=== PATIENT | male | born 1955 | race Caucasian/White ===

== ENCOUNTER 2017-04-08 10:10 | Emergency (ER) | payer OTHER ==
--- NOTE | 2017-04-08 10:15 | PDOC ---
Attending Attestation - Resident Resident Name: Bebo Buck - ED Attending Attestation I have performed the following: I have examined & evaluated the patient, The case was reviewed & discussed with the resident, I agree w/resident's findings & plan, Exceptions are as noted - HPI HPI: 04/08/17 10:14 The patient is a 61-year-old male, who presents to the emergency department with several days of right wrist pain, after a mechanical fall with wrist trauma. He denies weakness or paresthesias in the fingers. He denies pain or injury elsewhere. - Physicial Exam PE: 04/08/17 10:14 Vitals noted He has tenderness at the distal wrist over the distal radius and minimal tenderness in the snuff box He has no tenderness in the carpal bones or bones of the fingers. He has no tenderness in the proximal forearm. 04/08/17 10:31 - Medical Decision Making 04/08/17 10:15 He is well-appearing and in no acute distress Will obtain plain x-rays 04/08/17 11:18 X-ray radiology reading noted: No evidence of fracture We have informed the patient that he needs to follow-up with orthopedics for further evaluation to definitively exclude the possibility of a scaphoid fracture that is occult, or any other occult injury. Clinical impression: Wrist contusion I discussed the physical exam findings, ancillary test results and final diagnoses with the patient. I answered all of the patient's questions. The patient was satisfied with the care received and felt comfortable with the discharge plan and treatment plan. The patient will call their primary care physician within 24 hours to arrange follow-up and will return to the Emergency Department with any new, persistent or worsening symptoms.
[2017-04-08 10:23] VITALS: BP 143/101; PULSE 82; TEMP 97.9; BMI 30.1
--- NOTE | 2017-04-08 10:40 | PDOC ---
History of Present Illness - General Chief Complaint: Injury Stated Complaint: RIGHT WRIST PAIN Time Seen by Provider: 04/08/17 10:14 History Source: Patient Exam Limitations: No Limitations - History of Present Illness Initial Comments: 61 y/o M w/PMH of HTN, DM, HLD, Hydrocephalus s/p shunt, presents to [facility] ER w / c/o R wrist pain. Pt had mechanical fall after tripping on curb in [place] on March 27, 2017 (returned back to [facility] yesterday night) and landed on back and R wrist. He has had 8/10 pain since and has pain along the medial distal forearm to thumb area. He c/o some swelling in the area which has not subsided or worsened and used diclofenac gel in the area after injuring the wrist. He c/o some tingling in fingers. Ice in the morning helps with pain and tylenol helps alleviate the pain. He denies N/V/F/C, CP, SOB, abd pain, light-headedness, dizziness, change in vision. Past History - Past Medical History Allergies/Adverse Reactions: Allergies Allergy/AdvReac Type Severity Reaction Status Date / Time gabapentin [From Neurontin] Allergy Unknown Verified 04/08/17 10:28 Home Medications: Ambulatory Orders Albuterol Sulfate [Proair Respiclick] 90 mcg IH ASDIR 09/29/16 Amlodipine Besylate [Norvasc -] 10 mg PO DAILY 09/29/16 Aspirin [ASA -] 81 mg PO DAILY 09/29/16 Duloxetine HCl [Cymbalta] 60 mg PO BID 09/29/16 Fexofenadine HCl [Yessica Allergy] 180 mg PO DAILY 09/29/16 Furosemide [Lasix -] 40 mg PO DAILY 09/29/16 Metformin HCl [Glucophage] 1,000 mg PO BID 09/29/16 Omeprazole 40 mg PO DAILY 09/29/16 Quinapril HCl [Accupril] 20 mg PO DAILY 09/29/16 Saxagliptin HCl [Onglyza] 2.5 mg PO DAILY 09/29/16 Spironolactone [Aldactone] 25 mg PO DAILY 09/29/16 Diabetes: Yes HTN: Yes - Surgical History Cholecystectomy: Yes - Psycho/Social/Smoking Cessation Hx Anxiety: No Suicidal Ideation: No Smoking History: Never smoked Hx Alcohol Use: Yes Drug/Substance Use Hx: Yes Substance Use Type: Alcohol, Marijuana Review of Systems - Review of Systems Comments:: CONSTITUTIONAL: Absent: fever, no chills, no fatigue EYES: Absent: visual changes CARDIOVASCULAR: Absent: chest pain, no palpitations RESPIRATORY: Absent: cough, no SOB GI: Absent: abdominal pain, no nausea, no vomiting GENITOURINARY: Absent: dysuria MUSCULOSKELETAL: + right wrist pain along distal radius Absent: back pain, no myalgia SKIN: Absent: rash NEURO: Absent: light-headedness, dizziness *Physical Exam - Vital Signs Last Vital Signs Temp Pulse Resp BP Pulse Ox 97.9 F 82 16 143/101 98 04/08/17 10:12 04/08/17 10:12 04/08/17 10:12 04/08/17 10:12 04/08/17 10:12 - Physical Exam Comments: GENERAL: Well-appearing, well-nourished. No apparent distress. HEENT: EOM intact. CARDIOVASCULAR: Normal S1, S2. Regular rate and rhythm. PULMONARY: Clear to auscultation bilaterally. ABDOMEN: Soft, non-distended, non-tender. EXTREMITIES: +R wrist tenderness along distal radius. Pain along distral radius with flexion of wrist and radial deviation of wrist. +minimal swelling around R wrist. Normal ROM in all four extremities. SKIN: Warm, dry. No rash NEUROLOGICAL: No focal neurological deficits. B/L equal sensation to light touch in UE. ED Treatment Course - RADIOLOGY Radiology Studies Ordered: Category Date Time Status WRIST- RIGHT [RAD] Stat Radiology 04/08/17 10:32 Ordered Medical Decision Making - Medical Decision Making 04/08/17 10:42 R wrist xray ordered to r/o fracture. 04/08/17 11:19 Wrist XR negative for acute pathology including fractures. Pt advised to see his orthopedic surgeon (at [facility]). Will also refer to Dr. Villanueva as patient is considering seeing a physician nearby to this area. If he continues to have pain, will likely need MRI to further assess for fracture. *DC/Admit/Observation/Transfer Diagnosis at time of Disposition: Wrist injury - Discharge Dispostion Disposition: HOME Condition at time of disposition: Good - Referrals Referrals: Erum Lai MD [Primary Care Provider] - Adiel Villanueva MD [Staff Physician] - - Patient Instructions Printed Discharge Instructions: DI for Wrist Sprain, DI for Wrist Pain Additional Instructions: Please follow up with your primary care physician after this emergency room visit. You must also see an orthopedic surgeon. We have referred you to Dr. Villanueva who will be able to assess your wrist as well. If your pain continues and does not get better you may need an MRI to check for a fracture although your wrist x-ray was negative for fracture here. If your symptoms worsen, come back to the emergency room.
== END 2017-04-08 11:33 | disposition home or self-care (01) ==
LOC: FER 10:10
DX: S69.91XA Unspecified injury of right wrist, hand and finger(s), initial encounter (principal); W10.1XXA Fall (on)(from) sidewalk curb, initial encounter; Y93.89 Activity, other specified; Y92.410 Unspecified street and highway as the place of occurrence of the external cause; I10 Essential (primary) hypertension; E11.9 Type 2 diabetes mellitus without complications; Z79.82 Long term (current) use of aspirin; Z79.84 Long term (current) use of oral hypoglycemic drugs; E78.5 Hyperlipidemia, unspecified; G91.9 Hydrocephalus, unspecified; Z95.828 Presence of other vascular implants and grafts
CPT/HCPCS: 73110-TC-RT; 99282-25

== ENCOUNTER 2021-03-23 11:03 | Emergency (ER) | payer OTHER, MEDICARE ==
[2021-03-23 11:27] VITALS: BP 141/98; PULSE 96; TEMP 97.5; BMI 28.8
[2021-03-23] MEDS ORDERED: OXYMETAZOLINE 0.05% NASAL SOLUTION 15 ML BOTTLE NS ONE ×2 (12:25→12:32)
[2021-03-23] MEDS ORDERED: TRANEXAMIC ACID 1000 MG/10 ML VIAL IVPUSH ONE (13:21)
[2021-03-23] MEDS ORDERED: TRANEXAMIC ACID 1000 MG/10 ML VIAL ONE ×2 (13:41→13:48)
== END 2021-03-23 14:35 | disposition left against medical advice (07) ==
LOC: FER 11:03
PROC: 3E033GC Introduction of Other Therapeutic Substance into Peripheral Vein, Percutaneous Approach (ICD-10-PCS; principal; 2021-03-23)
DX: R04.0 Epistaxis (principal)
CPT/HCPCS: 99284-25